=== PATIENT | female | born 1995 | race African-American/Black ===

== ENCOUNTER 2020-06-22 19:50 | Inpatient (IN) | payer OTHER ==
[~2020-06-22 19:50] MED LIST: Iopamidol-370 76% 500 ML 1 ML ONE
[2020-06-22] MEDS ORDERED: Ondansetron PF 4 MG/2 ML Vial ONE ×2 (19:51→20:04)
[2020-06-22 20:07] LABS: Hemoglobin 8.7 g/dL (12.0-16.0); Mean Corpuscular HGB CONC 31.1 g/dL (32.0-36.0); Mean Corpuscular Hemoglobin 24.4 pg (27.0-31.0); Mean Corpuscular Volume 78.5 fL (78.0-98.0); Mean Platelet Volume 10.7 fL (7.4-10.4); Platelet Count 272 thou/uL (130-400); RBC Distribution Width 22.5 % (11.5-14.5); Red Blood Cell (RBC) Count 3.58 mill/uL (4.20-5.40); White Blood Cell (WBC) Count 28.5 thou/uL (4.8-10.8)
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
[2020-06-22] MEDS ORDERED: Fentanyl 100 MCG/2 ML VIAL ONE (20:19)
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
[2020-06-22] MEDS ORDERED: Promethazine HCl 25 MG/ML VIAL ONE ×2 (20:25→20:26)
[2020-06-22 20:30] LABS: MDiff Complete? YES
[2020-06-22 20:31] LABS: Anisocytosis SLIGHT = 6-15 cells (100X) (0-5/hpf); Band 19 % (5-11); Lymphocytes 19 % (21-51); Metamyelocyte 1 % (0-0); Microcytosis SLIGHT = 6-15 cells (100X) (0-5/hpf); Monocytes 1 % (0-10); Neutrophil 60 % (42-75)
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
[2020-06-22 20:37] LABS: INR-International Normal Ratio 1.2; PTT 30.3 sec (22.9-36.1); Prothrombin Time 15.8 sec (12.0-14.7)
[2020-06-22 20:41] LABS: BHCG - Serum Negative (NEGATIVE); Pregs Control Background? CLEAR/WHITE (CLR/WHITE); Pregs Control Bar Appear? YES (CONTROL BAR)
[2020-06-22 20:45] LABS: ALT (SGPT) 427 U/L (8-55); AST (SGOT) 697 U/L (5-34); Alkaline Phosphatase 106 U/L (40-110); Anion Gap 13 mmol/L (10-20); BUN (Urea Nitrogen) 14 mg/dL (7.0-18.7); Bilirubin, Total 0.4 mg/dL (0.2-1.2); Calc. Creatinine Clearance 0 mL/min (70-130); Calcium 7.2 mg/dL (7.8-10.44); Carbon Dioxide 16 mmol/L (22-29); Chloride 112 mmol/L (98-107); Globulin 2.4 g/dL (2.4-3.5); Glucose 178 mg/dL (70-105); Potassium 3.4 mmol/L (3.5-5.1); Protein, Total 5.4 g/dL (6.0-8.3); Sodium 138 mmol/L (136-145)
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
--- NOTE | 2020-06-22 21:05 | RAD ---
EXAM: 3 views of the left ankle HISTORY: Left ankle pain COMPARISON: None FINDINGS: 3 views of the left ankle shows no evidence of acute fracture or dislocation. No soft tissu e swelling is seen. No degenerative changes are present. IMPRESSION: No evidence of acute osseous abnormality.
[2020-06-22] MEDS ORDERED: Dextrose 50% Abboject 50 ML SYRINGE SLOW IVP PRN (21:06)
[2020-06-22] MEDS ORDERED: Morphine 2 MG/ML VIAL SLOW IVP PRN (21:06)
[2020-06-22] MEDS ORDERED: Promethazine HCl 25 MG/ML VIAL IM PRN (21:06)
[2020-06-22] MEDS ORDERED: Dextrose 5% in Water 1,000 ML IV PRN (21:06)
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
[2020-06-22 21:44] LABS: Magnesium 1.8 mg/dL (1.6-2.6); Phosphorus 3.4 mg/dL (2.3-4.7)
[2020-06-22 21:52] LABS: SARS-CoV-2 NAA Rapid Test Not Detected (NotDetected)
[2020-06-22] MEDS ORDERED: Sodium Chloride 0.9% 1,000 ML IV SCH (22:00)
[2020-06-22 22:54] LABS: Hemoglobin 9.8 g/dL (12.0-16.0)
[2020-06-22 23:09] LABS: Lactic Acid 3.3 mmol/L (0.5-2.2)
[2020-06-23] MEDS: Ondansetron PF 4 MG/2 ML Vial IVP PRN (00:14)
[2020-06-23 00:28] VITALS: BMI 26.9
[2020-06-23] MEDS: Lactated Ringer's 1,000 ML IV SCH ×3 (00:59→18:48)
[2020-06-23] MEDS: Morphine 4 MG/ML VIAL SLOW IVP PRN ×3 (02:39→08:45)
[2020-06-23] MEDS ORDERED: Acetaminophen 325 MG Suppository PR PRN (02:43)
[2020-06-23 05:18] LABS: INR-International Normal Ratio 1.1; Prothrombin Time 14.5 sec (12.0-14.7)
[2020-06-23 05:25] LABS: #Lymphocytes 1.1 thou/uL (1.20-3.40); #Monocytes 0.8 thou/uL (0.11-0.59); %Basophils 0.1 % (0.0-1.0); %Eosinophils 0.1 % (0.0-10.0); %Lymphocytes 6.3 % (21.0-51.0); %Monocytes 4.9 % (0.0-10.0); %Neutrophils 88.6 % (42.0-75.0); Hemoglobin 9.1 g/dL (12.0-16.0); Mean Corpuscular HGB CONC 31.4 g/dL (32.0-36.0); Mean Corpuscular Volume 79.3 fL (78.0-98.0); Mean Platelet Volume 11.4 fL (7.4-10.4); Platelet Count 189 thou/uL (130-400); RBC Distribution Width 21.2 % (11.5-14.5); Red Blood Cell (RBC) Count 3.66 mill/uL (4.20-5.40); White Blood Cell (WBC) Count 16.9 thou/uL (4.8-10.8)
[2020-06-23 05:31] LABS: Lactic Acid 2.3 mmol/L (0.5-2.2)
[2020-06-23 05:36] LABS: ALT (SGPT) 476 U/L (8-55); AST (SGOT) 666 U/L (5-34); Albumin 3.3 g/dL (3.5-5.0); Alkaline Phosphatase 102 U/L (40-110); Anion Gap 12 mmol/L (10-20); BUN (Urea Nitrogen) 15 mg/dL (7.0-18.7); Bilirubin, Total 0.7 mg/dL (0.2-1.2); Calc. Creatinine Clearance 141 mL/min (70-130); Calcium 7.5 mg/dL (7.8-10.44); Carbon Dioxide 18 mmol/L (22-29); Chloride 112 mmol/L (98-107); Globulin 2.7 g/dL (2.4-3.5); Glucose 124 mg/dL (70-105); Magnesium 1.8 mg/dL (1.6-2.6); Phosphorus 5.5 mg/dL (2.3-4.7); Potassium 4.6 mmol/L (3.5-5.1); Sodium 137 mmol/L (136-145)
[2020-06-23] MEDS ORDERED: Magnesium 2 GM/50 ML 2 GM in Premix Bag 1 BAG IVPB SCH (07:45)
[2020-06-23] MEDS ORDERED: CEFAZOLIN 2 GM in Premix Bag 1 BAG IVPB SCH (08:45)
[2020-06-23] MEDS: Famotidine/PF 20 mg/2ml Vial SLOW IVP SCH ×2 (08:48→21:19)
[2020-06-23] MEDS ORDERED: TETANUS AND DIPHTHERIA TOX/PF 0.5 ML DISP.SYRIN IM ONE ×2 (09:00→14:30)
[2020-06-23] MEDS ORDERED: FLU VACC QS2020-21(6MOS UP)/PF 60 MCG/0.5 ML SYRINGE IM ONE (09:00)
[2020-06-23] MEDS ORDERED: PROPOFOL 200 MG/20 ML VIAL ONE (09:14)
[2020-06-23] MEDS ORDERED: Dexamethasone 20 MG/5 ML VIAL ONE (09:14)
[2020-06-23] MEDS ORDERED: Rocuronium Bromide 10 MG/ML (10ML VIAL) ONE (09:14)
[2020-06-23] MEDS ORDERED: PHENYLEPHRINE-NS 100 MCG/ML 10 ML SYRINGE ONE (09:14)
[2020-06-23] MEDS ORDERED: Lidocaine 1% PF 5 ML VIAL ONE (09:14)
[2020-06-23] MEDS ORDERED: Glycopyrrolate 0.2 MG/ML 5 ML SYRINGE ONE (09:14)
[2020-06-23] MEDS ORDERED: Ondansetron PF 4 MG/2 ML Vial ONE (09:14)
[2020-06-23] MEDS ORDERED: Sodium Chloride 0.9% 1,000 ML IV SCH (10:00)
--- NOTE | 2020-06-23 11:21 | RAD ---
EXAM: Chest one view: HISTORY: Follow-up tiny right apical pneumothorax. COMPARISON: 06/22/2020 FINDINGS: Very poor inspiratory effort. Heart size: Within normal limits. Lungs: Minimal patchy parenchymal changes primarily in the right midlung zone. No evidence for significant pneumothorax. IMPRESSION: Patchy parenchymal changes right midlung zone probably residual contusion. No evidence for significant pneumothorax. Continued short-term follow-up.
[2020-06-23] MEDS ORDERED: HYDROmorphone 10 mg/100 ml CADD IVPB PRN (11:45)
[2020-06-23 11:46] LABS: Medtox Reader # READER 4; Opiate Screen Detected (NotDetected)
[2020-06-23 11:47] LABS: Amphetamine Not Detected (NotDetected); Barbiturates Screen Not Detected (NotDetected); Benzodiazepine Screen Not Detected (NotDetected); Cocaine Metabolite Screen Not Detected (NotDetected); Medtox Control Line Valid? VALID (VALID); Methadone Not Detected (NotDetected); Methamphetamine Not Detected (NotDetected); Oxycodone Screen Not Detected (NotDetected); Phencyclidine (PCP) Not Detected (NotDetected); THC/Cannabinoid Screen Not Detected (NotDetected); Tricyclic Screen Not Detected (NotDetected)
[2020-06-23 11:54] LABS: Bacteria/HPF None Seen HPF (None Seen); Bilirubin Negative (Negative); Blood, Urine 1+ (Negative); Clarity Clear (Clear); Glucose, Urine (Dipstick) Normal (Negative); Ketone, Urine Negative (Negative); Leukocyte Negative Leu/uL (Negative); Nitrite Negative (Negative); Protein, Urine (Dipstick) 20 mg/dL (Neg-Trace); Squamous Epithelial 0-3 HPF (0-3); Urobilinogen Normal mg/dL (Less than 2)
[2020-06-23 11:56] LABS: Urine Culture Reflex Yes Yes
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
[2020-06-23] MEDS ORDERED: Fentanyl 100 MCG/2 ML VIAL ONE (14:31)
[2020-06-23] MEDS ORDERED: SUGAMMADEX SODIUM 200 MG/2 ML VIAL ONE (16:31)
[2020-06-23] MEDS: CEFAZOLIN 2 GM in Premix Bag 1 BAG IVPB SCH (18:31)
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
[2020-06-23 19:29] LABS: Hemoglobin 8.4 g/dL (12.0-16.0); Mean Corpuscular HGB CONC 31.7 g/dL (32.0-36.0); Mean Corpuscular Hemoglobin 25.6 pg (27.0-31.0); Mean Corpuscular Volume 80.8 fL (78.0-98.0); Mean Platelet Volume 11.7 fL (7.4-10.4); Platelet Count 148 thou/uL (130-400); RBC Distribution Width 21.1 % (11.5-14.5); Red Blood Cell (RBC) Count 3.27 mill/uL (4.20-5.40); White Blood Cell (WBC) Count 15.7 thou/uL (4.8-10.8)
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
[2020-06-23] MEDS ORDERED: Boostrix 0.5 ML (Tdap) VIAL IM ONE (20:00)
--- NOTE | 2020-06-23 23:20 | PDOC.BPN ---
- Brief Progress Note Encounter Date: 06/23/20 Encounter Time: 21:00 Patient was seen during evening rounds in the critical care unit resting comfortably in no distress. No issues reported by the patients nurse. Apsen collar remains in place due to posterior neck pain. She continues be be confused off and on. Abdomen is soft, with diffuse tenderness. Vital signs are stable, mildly tachycardiac, highest temp 100.2. She is tolerating clear liquids with minimal appetite. Plan of care is unchanged
[2020-06-24 01:04] LABS: Hemoglobin 7.3 g/dL (12.0-16.0); Mean Corpuscular HGB CONC 32.5 g/dL (32.0-36.0); Mean Corpuscular Hemoglobin 25.9 pg (27.0-31.0); Mean Corpuscular Volume 79.7 fL (78.0-98.0); Mean Platelet Volume 11.4 fL (7.4-10.4); Platelet Count 134 thou/uL (130-400); RBC Distribution Width 20.9 % (11.5-14.5); Red Blood Cell (RBC) Count 2.82 mill/uL (4.20-5.40); White Blood Cell (WBC) Count 10.9 thou/uL (4.8-10.8)
[2020-06-24] MEDS: CEFAZOLIN 2 GM in Premix Bag 1 BAG IVPB SCH (02:52)
[2020-06-24] MEDS: Lactated Ringer's 1,000 ML IV SCH ×3 (02:53→21:11)
[2020-06-24 04:54] LABS: #Lymphocytes 0.9 thou/uL (1.20-3.40); #Monocytes 0.6 thou/uL (0.11-0.59); #Neutrophils 10.8 thou/uL (1.40-6.50); %Basophils 0.2 % (0.0-1.0); %Lymphocytes 7.4 % (21.0-51.0); %Monocytes 4.5 % (0.0-10.0); %Neutrophils 87.9 % (42.0-75.0); Hemoglobin 7.4 g/dL (12.0-16.0); Mean Corpuscular HGB CONC 32.7 g/dL (32.0-36.0); Mean Corpuscular Hemoglobin 26.3 pg (27.0-31.0); Mean Corpuscular Volume 80.5 fL (78.0-98.0); Mean Platelet Volume 10.9 fL (7.4-10.4); Platelet Count 131 thou/uL (130-400); RBC Distribution Width 21.1 % (11.5-14.5); Red Blood Cell (RBC) Count 2.83 mill/uL (4.20-5.40); White Blood Cell (WBC) Count 12.3 thou/uL (4.8-10.8)
[2020-06-24 05:08] LABS: Lactic Acid 1.6 mmol/L (0.5-2.2)
[2020-06-24 05:12] LABS: ALT (SGPT) 322 U/L (8-55); AST (SGOT) 247 U/L (5-34); Albumin 3.3 g/dL (3.5-5.0); Alkaline Phosphatase 84 U/L (40-110); Anion Gap 12 mmol/L (10-20); BUN (Urea Nitrogen) 10 mg/dL (7.0-18.7); Bilirubin, Total 0.5 mg/dL (0.2-1.2); Calc. Creatinine Clearance 145 mL/min (70-130); Calcium 7.9 mg/dL (7.8-10.44); Carbon Dioxide 21 mmol/L (22-29); Chloride 108 mmol/L (98-107); Globulin 2.7 g/dL (2.4-3.5); Glucose 134 mg/dL (70-105); Magnesium 2.1 mg/dL (1.6-2.6); Phosphorus 2.8 mg/dL (2.3-4.7); Potassium 4.5 mmol/L (3.5-5.1); Sodium 136 mmol/L (136-145)
[2020-06-24] MEDS ORDERED: Sodium Phosphate 15 MMOL in Sodium Chloride 0.9% 250 ML 250 ML IVPB SCH (07:30)
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
[2020-06-24] MEDS: Famotidine/PF 20 mg/2ml Vial SLOW IVP SCH ×2 (08:20→21:09)
--- NOTE | 2020-06-24 09:16 | RAD ---
CHEST 1 VIEW: INDICATION: History of right-sided pneumonia. FINDINGS: Right-sided airspace disease persists. Cardiomegaly is stable. No pleural effusion or pneumothorax is evident. Osseous structures are similar. The patient has a tracheostomy tube in place. IMPRESSION: Right lower lobe pneumonia. POS: [facility]
[2020-06-24 10:28] LABS: Mean Corpuscular HGB CONC 32.7 g/dL (32.0-36.0); Mean Corpuscular Hemoglobin 26.6 pg (27.0-31.0); Mean Corpuscular Volume 81.4 fL (78.0-98.0); Mean Platelet Volume 11.3 fL (7.4-10.4); Platelet Count 123 thou/uL (130-400); RBC Distribution Width 19.7 % (11.5-14.5); White Blood Cell (WBC) Count 14.1 thou/uL (4.8-10.8)
[2020-06-24] MEDS ORDERED: HYDROmorphone 10 mg/100 ml CADD IVPB PRN (11:18)
[2020-06-24] MEDS ORDERED: traMADol HCl 50 MG TAB PO SCH (12:00)
[2020-06-24] MEDS: Ondansetron PF 4 MG/2 ML Vial IVP PRN ×2 (12:40→21:09)
[2020-06-24] MEDS: Gabapentin 300 MG CAP PO SCH ×2 (15:00→21:10)
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
[2020-06-24 16:51] LABS: Lactic Acid 1.9 mmol/L (0.5-2.2)
[2020-06-24] MEDS ORDERED: traMADol HCl 50 MG TAB PO PRN (17:11)
[2020-06-24 17:43] LABS: Hemoglobin 7.4 g/dL (12.0-16.0); Mean Corpuscular HGB CONC 31.9 g/dL (32.0-36.0); Mean Corpuscular Hemoglobin 25.6 pg (27.0-31.0); Mean Corpuscular Volume 80.1 fL (78.0-98.0); Mean Platelet Volume 11.7 fL (7.4-10.4); Platelet Count 131 thou/uL (130-400); White Blood Cell (WBC) Count 15.4 thou/uL (4.8-10.8)
--- NOTE | 2020-06-24 23:53 | PDOC.BPN ---
- Brief Progress Note Encounter Date: 06/24/20 Encounter Time: 21:30 Patient was seen during evening rounds in the critical care unit resting comfortably in no distress. Arouses easily. Continues to be confused off and on. She thinks she is in a mental hospital. Abdomen is soft and less tender. Vital signs are stable and patient is afebrile. Mildly tachycardiac. Plan of care is unchanged
[2020-06-25 00:11] LABS: Hemoglobin 7.4 g/dL (12.0-16.0); Mean Corpuscular HGB CONC 32.5 g/dL (32.0-36.0); Mean Corpuscular Hemoglobin 26.1 pg (27.0-31.0); Mean Corpuscular Volume 80.2 fL (78.0-98.0); Platelet Count 120 thou/uL (130-400); RBC Distribution Width 19.8 % (11.5-14.5); Red Blood Cell (RBC) Count 2.83 mill/uL (4.20-5.40)
[2020-06-25] MEDS: Lactated Ringer's 1,000 ML IV SCH ×3 (05:18→19:15)
[2020-06-25 05:43] LABS: #Eosinphils 0.2 thou/uL (0.0-0.7); #Lymphocytes 2.3 thou/uL (1.20-3.40); #Monocytes 0.9 thou/uL (0.11-0.59); #Neutrophils 9.9 thou/uL (1.40-6.50); %Basophils 0.4 % (0.0-1.0); %Eosinophils 1.7 % (0.0-10.0); %Lymphocytes 17.3 % (21.0-51.0); %Monocytes 6.8 % (0.0-10.0); %Neutrophils 73.8 % (42.0-75.0); Hemoglobin 7.1 g/dL (12.0-16.0); Mean Corpuscular HGB CONC 31.4 g/dL (32.0-36.0); Mean Corpuscular Hemoglobin 25.3 pg (27.0-31.0); Mean Corpuscular Volume 80.5 fL (78.0-98.0); Mean Platelet Volume 11.7 fL (7.4-10.4); Platelet Count 109 thou/uL (130-400); RBC Distribution Width 20.1 % (11.5-14.5); Red Blood Cell (RBC) Count 2.82 mill/uL (4.20-5.40); White Blood Cell (WBC) Count 13.3 thou/uL (4.8-10.8)
[2020-06-25 05:52] LABS: Phosphorus 2.7 mg/dL (2.3-4.7)
[2020-06-25 05:55] LABS: ALT (SGPT) 184 U/L (8-55); AST (SGOT) 120 U/L (5-34); Alkaline Phosphatase 75 U/L (40-110); Anion Gap 10 mmol/L (10-20); BUN (Urea Nitrogen) 10 mg/dL (7.0-18.7); Bilirubin, Total 0.6 mg/dL (0.2-1.2); Calc. Creatinine Clearance 155 mL/min (70-130); Calcium 7.4 mg/dL (7.8-10.44); Carbon Dioxide 23 mmol/L (22-29); Chloride 107 mmol/L (98-107); Globulin 2.4 g/dL (2.4-3.5); Glucose 89 mg/dL (70-105); Magnesium 1.9 mg/dL (1.6-2.6); Potassium 3.9 mmol/L (3.5-5.1); Protein, Total 5.4 g/dL (6.0-8.3); Sodium 136 mmol/L (136-145)
[2020-06-25] MEDS ORDERED: Magnesium Sulfate 3 GM, Potassium Phosphate 30 MMOL in Sodium Chloride 0.9% 250 ML 250 ML IVPB SCH (08:30)
[2020-06-25] MEDS: Famotidine/PF 20 mg/2ml Vial SLOW IVP SCH ×2 (09:27→21:26)
[2020-06-25] MEDS: Ascorbic Acid 500 mg Chewable Tablet PO SCH ×2 (09:27→21:22)
[2020-06-25] MEDS: Gabapentin 300 MG CAP PO SCH ×3 (09:28→21:19)
[2020-06-25] MEDS: Ferrous Sulfate 325 MG TAB PO SCH ×2 (09:30→21:22)
[2020-06-25] MEDS ORDERED: Gabapentin 300 MG CAP ONE (17:00)
[2020-06-25] MEDS ORDERED: Famotidine/PF 20 mg/2ml Vial ONE (21:25)
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
[2020-06-26 07:21] LABS: Anion Gap 13 mmol/L (10-20); BUN (Urea Nitrogen) 7 mg/dL (7.0-18.7); Calc. Creatinine Clearance 187 mL/min (70-130); Calcium 7.3 mg/dL (7.8-10.44); Carbon Dioxide 21 mmol/L (22-29); Chloride 106 mmol/L (98-107); Glucose 74 mg/dL (70-105); Magnesium 1.8 mg/dL (1.6-2.6); Potassium 4.2 mmol/L (3.5-5.1); Sodium 136 mmol/L (136-145)
[2020-06-26 07:56] LABS: #Eosinphils 0.3 thou/uL (0.0-0.7); #Lymphocytes 1.8 thou/uL (1.20-3.40); #Monocytes 0.9 thou/uL (0.11-0.59); #Neutrophils 10.2 thou/uL (1.40-6.50); %Basophils 0.3 % (0.0-1.0); %Lymphocytes 13.9 % (21.0-51.0); %Monocytes 6.9 % (0.0-10.0); Hemoglobin 8.5 g/dL (12.0-16.0); Mean Corpuscular HGB CONC 32.7 g/dL (32.0-36.0); Mean Corpuscular Hemoglobin 26.7 pg (27.0-31.0); Mean Corpuscular Volume 81.8 fL (78.0-98.0); Mean Platelet Volume 6.7 fL (7.4-10.4); Platelet Count 113 thou/uL (130-400); RBC Distribution Width 19.7 % (11.5-14.5); White Blood Cell (WBC) Count 13.3 thou/uL (4.8-10.8)
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
[2020-06-26] MEDS: Famotidine 20 MG TAB PO SCH ×2 (09:00→20:33)
[2020-06-26] MEDS: Ferrous Sulfate 325 MG TAB PO SCH ×2 (09:00→20:33)
[2020-06-26] MEDS: Gabapentin 100 MG CAP PO SCH ×3 (09:00→20:33)
[2020-06-26] MEDS: Ascorbic Acid 500 mg Chewable Tablet PO SCH ×2 (09:00→20:33)
[2020-06-26] MEDS: cloNIDine 0.1 MG TAB PO SCH ×3 (09:28→20:33)
[2020-06-26] MEDS: Docusate 100 MG CAP PO SCH ×2 (09:29→20:33)
[2020-06-26] MEDS ORDERED: Iopamidol 370 76% 50 ML VIAL FS ONE (10:03)
[2020-06-26] MEDS: Lactated Ringer's 1,000 ML IV SCH ×3 (11:26→18:52)
[2020-06-26] MEDS: Polyethylene Glycol 3350 17 GM Packet PO SCH (11:27)
--- NOTE | 2020-06-26 11:29 | PRG ---
DATE OF SERVICE: 06/26/2020 SUBJECTIVE: Delfina is now postop day 3 from a left femoral shaft intramedullary nail fixation. She is doing relatively well. She still is in temporizing PACU currently. OBJECTIVE: Temperature 98.1, pulse 126, respiratory rate 28, blood pressure is 130/84. She arouses, but still somnolent as she was yesterday. She does not speak much and she is very somnolent. Splints intact over the left distal radius for closed treatment for minimally displaced fracture. [place] are intact in the left femur. Neurovascularly intact. No shortening or malrotation. LABORATORY DATA: Hemoglobin and hematocrit 8.5 and 26.1. IMPRESSION: 1. A 24-year-old female, postop day 3, left femoral shaft nailing and closed treatment of left distal radius. 2. Anemia. PLAN: We will continue to follow for blood loss, pain control. Disposition per Trauma Team. Job ID: [id number]
[2020-06-26] MEDS: traMADol HCl 50 MG TAB PO SCH ×3 (12:00→22:05)
[2020-06-26] MEDS: Acetaminophen 325 MG TAB PO SCH ×3 (12:30→22:05)
[2020-06-26] MEDS ORDERED: Morphine 2 MG/ML VIAL SLOW IVP PRN (14:27)
[2020-06-26] MEDS ORDERED: Magnesium Sulfate 3 GM in Sodium Chloride 0.9% 100 ML IVPB SCH (14:30)
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
[2020-06-26] MEDS: Cyclobenzaprine 10 MG TAB PO PRN (20:33)
[2020-06-26] MEDS: traMADol HCl 50 MG TAB PO PRN (20:33)
--- NOTE | 2020-06-26 23:13 | RAD ---
EXAM: CHEST ONE VIEW HISTORY: Hypoxia COMPARISON: 06/24/2020 FINDINGS: Cardiac silhouette is magnified by projection. There has been interval increase in bilateral perihila r parenchymal airspace opacities with greater parenchymal opacity present at each lung base as well. IVC filter is partially imaged overlying the right mid abdomen. No other interval change. IMPRESSION: Interval increase in bilateral perihilar parenchymal airspace opacities as well as increase in parenc hymal airspace opacities at each lung base. Findings may be related to bilateral infectious process/pneumonia. Atypical pneumonia is a possibility. Follow-up to resolution is recommended.
[2020-06-26] MEDS ORDERED: Chloraseptic Spray 180 ml Bottle PO PRN (23:20)
[2020-06-27] MEDS: cloNIDine 0.1 MG TAB PO SCH ×4 (02:56→20:30)
[2020-06-27] MEDS: Lactated Ringer's 1,000 ML IV SCH ×2 (03:30→18:05)
[2020-06-27] MEDS: traMADol HCl 50 MG TAB PO SCH (05:50)
[2020-06-27] MEDS: Acetaminophen 325 MG TAB PO SCH ×4 (05:50→23:57)
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
[2020-06-27 08:08] LABS: #Eosinphils 0.3 thou/uL (0.0-0.7); #Lymphocytes 2.1 thou/uL (1.20-3.40); #Monocytes 1.1 thou/uL (0.11-0.59); #Neutrophils 7.7 thou/uL (1.40-6.50); %Basophils 0.4 % (0.0-1.0); %Eosinophils 2.5 % (0.0-10.0); %Lymphocytes 18.6 % (21.0-51.0); %Monocytes 9.7 % (0.0-10.0); %Neutrophils 68.8 % (42.0-75.0); Hemoglobin 9.9 g/dL (12.0-16.0); Mean Corpuscular HGB CONC 32.5 g/dL (32.0-36.0); Mean Corpuscular Hemoglobin 26.9 pg (27.0-31.0); Mean Corpuscular Volume 82.9 fL (78.0-98.0); Mean Platelet Volume 11.6 fL (7.4-10.4); Platelet Count 132 thou/uL (130-400); RBC Distribution Width 21.4 % (11.5-14.5); Red Blood Cell (RBC) Count 3.69 mill/uL (4.20-5.40); White Blood Cell (WBC) Count 11.2 thou/uL (4.8-10.8)
--- NOTE | 2020-06-27 08:23 | RAD ---
PORTABLE CHEST: Date: 06/27/2020 HISTORY: Pneumonia follow-up. COMPARISON: 06/26/2020. FINDINGS: Bilateral lung infiltrates are again seen, more pronounced in the perihilar regions. The infiltrates appear improved when compared to yesterday. IMPRESSION: Improvement in the bilateral perihilar infiltrates. POS: AGW
[2020-06-27 08:40] LABS: Anion Gap 11 mmol/L (10-20); BUN (Urea Nitrogen) 10 mg/dL (7.0-18.7); Calc. Creatinine Clearance 178 mL/min (70-130); Carbon Dioxide 24 mmol/L (22-29); Chloride 108 mmol/L (98-107); Glucose 98 mg/dL (70-105); Magnesium 2.1 mg/dL (1.6-2.6); Phosphorus 3.7 mg/dL (2.3-4.7); Sodium 139 mmol/L (136-145)
[2020-06-27] MEDS: Famotidine 20 MG TAB PO SCH ×2 (08:54→20:30)
[2020-06-27] MEDS: Azithromycin 250 MG TAB PO SCH (08:54)
[2020-06-27] MEDS: Ascorbic Acid 500 mg Chewable Tablet PO SCH ×2 (08:54→20:32)
[2020-06-27] MEDS: Gabapentin 100 MG CAP PO SCH ×3 (08:54→20:32)
[2020-06-27] MEDS: Polyethylene Glycol 3350 17 GM Packet PO SCH (08:55)
[2020-06-27] MEDS: Ferrous Sulfate 325 MG TAB PO SCH ×2 (08:55→20:32)
[2020-06-27] MEDS: Docusate 100 MG CAP PO SCH ×2 (08:55→20:32)
--- NOTE | 2020-06-27 09:46 | ULT ---
EXAM: Bilateral lower extremity venous Doppler US HISTORY: bilateral lower extremity pain FINDINGS: Grayscale, color-flow, Doppler evaluation, spectral analysis of the bilateral lower extremities venou s structures is performed with 2-D imaging. The bilateral common femoral, superficial femoral, popliteal, posterior tibial, proximal greater saphenous and profunda femoral veins are imaged. There is normal luminal compressibility, flow, and augmentation in the visualized deep venous structu res of the bilateral lower extremities. IMPRESSION: No evidence of a deep vein thrombosis in either lower extremity.
--- NOTE | 2020-06-27 15:19 | PRG ---
DATE OF SERVICE: 06/27/2020 SUBJECTIVE: Delfina is a 24-year-old female, postoperative day 4 for left femur intramedullary nail fixation. She is doing relatively well, but she still is sluggish and very sleepy. OBJECTIVE: GENERAL: She wakens and arouses. VITAL SIGNS: Stable. Temperature 97.9, pulse 96, respiratory rate 16, and blood pressure 135/82. NEUROLOGIC: She is alert and responsive, but very somnolent. IMPRESSION: 1. A 24-year-old female postoperative day 4 for left femoral nail fixation. 2. Closed treatment of left distal radius fracture. PLAN: Continue current care. Disposition per Trauma Team. Job ID: [id number]
[2020-06-28] MEDS: traMADol HCl 50 MG TAB PO PRN ×2 (00:07→18:39)
[2020-06-28] MEDS: Cyclobenzaprine 10 MG TAB PO PRN (00:07)
[2020-06-28] MEDS: cloNIDine 0.1 MG TAB PO SCH ×4 (02:29→20:25)
[2020-06-28] MEDS: Lactated Ringer's 1,000 ML IV SCH ×2 (04:56→16:12)
[2020-06-28] MEDS: Acetaminophen 325 MG TAB PO SCH ×4 (05:00→23:29)
[2020-06-28] MEDS: Gabapentin 100 MG CAP PO SCH ×3 (09:43→20:25)
[2020-06-28] MEDS: Famotidine 20 MG TAB PO SCH ×2 (09:43→20:25)
[2020-06-28] MEDS: Ascorbic Acid 500 mg Chewable Tablet PO SCH ×2 (09:43→20:25)
[2020-06-28] MEDS: Docusate 100 MG CAP PO SCH ×2 (09:43→20:25)
[2020-06-28] MEDS: Azithromycin 250 MG TAB PO SCH (09:43)
[2020-06-28] MEDS: Ferrous Sulfate 325 MG TAB PO SCH ×2 (09:43→20:26)
[2020-06-28] MEDS: Polyethylene Glycol 3350 17 GM Packet PO SCH (09:44)
[2020-06-28] MEDS: Bisacodyl 10 MG SUPP PR SCH (16:13)
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
[2020-06-29] MEDS: cloNIDine 0.1 MG TAB PO SCH ×4 (02:30→20:46)
[2020-06-29] MEDS: traMADol HCl 50 MG TAB PO PRN ×2 (04:05→10:16)
[2020-06-29] MEDS: Acetaminophen 325 MG TAB PO SCH ×3 (05:32→18:22)
[2020-06-29 05:43] LABS: #Eosinphils 0.3 thou/uL (0.0-0.7); #Monocytes 0.8 thou/uL (0.11-0.59); #Neutrophils 7.8 thou/uL (1.40-6.50); %Basophils 0.1 % (0.0-1.0); %Eosinophils 2.5 % (0.0-10.0); %Lymphocytes 18.6 % (21.0-51.0); %Monocytes 7.1 % (0.0-10.0); %Neutrophils 71.8 % (42.0-75.0); Hemoglobin 9.9 g/dL (12.0-16.0); Mean Corpuscular HGB CONC 30.9 g/dL (32.0-36.0); Mean Corpuscular Hemoglobin 25.6 pg (27.0-31.0); Mean Corpuscular Volume 82.6 fL (78.0-98.0); Mean Platelet Volume 11.1 fL (7.4-10.4); Platelet Count 191 thou/uL (130-400); RBC Distribution Width 22.2 % (11.5-14.5); Red Blood Cell (RBC) Count 3.89 mill/uL (4.20-5.40); White Blood Cell (WBC) Count 10.8 thou/uL (4.8-10.8)
--- NOTE | 2020-06-29 08:10 | RAD ---
Chest AP view INDICATION: Follow-up evaluation COMPARISON: June 27, 2020 FINDINGS: Lungs: There is worsening airspace disease of the left lower lobe. Patchy airspace opacity at the ri ght lung base is stable Cardiac silhouette: Mild cardiomegaly persists Pulmonary vasculature: There is worsening pulmonary vascular congestion Pleural spaces: There are tiny bilateral pleural effusions, left greater than right Upper abdomen: No abnormality seen. Osseous structures: No acute osseous abnormality. Additional findings: None. IMPRESSION: Persistent mild cardiomegaly worsening pulmonary vascular congestion and tiny bilateral pleural effus ions . Recommend correlation for volume overload. There is worsening airspace disease of the left lower lobe which may reflect worsening subsegmental volume loss, edema or pneumonia. Continued follow -up is recommended
[2020-06-29] MEDS: Ferrous Sulfate 325 MG TAB PO SCH ×2 (08:26→20:45)
[2020-06-29] MEDS: Azithromycin 250 MG TAB PO SCH (08:26)
[2020-06-29] MEDS: Docusate 100 MG CAP PO SCH ×2 (08:26→20:45)
[2020-06-29] MEDS: Ascorbic Acid 500 mg Chewable Tablet PO SCH ×2 (08:26→20:45)
[2020-06-29] MEDS: Famotidine 20 MG TAB PO SCH ×2 (08:26→20:45)
[2020-06-29] MEDS: Gabapentin 100 MG CAP PO SCH ×3 (08:27→20:45)
[2020-06-29] MEDS: Polyethylene Glycol 3350 17 GM Packet PO SCH (08:29)
[2020-06-29] MEDS: Lactated Ringer's 1,000 ML IV SCH (11:38)
[2020-06-29] MEDS ORDERED: Furosemide 20 MG TAB PO SCH (12:45)
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
[2020-06-29] MEDS: Bisacodyl 10 MG SUPP PR SCH (17:41)
[2020-06-29] MEDS: Senokot S 8.6-50 MG TAB PO SCH (20:45)
[2020-06-29] MEDS: Enoxaparin Sodium 40 MG/0.4 ML SYRINGE SC SCH (20:46)
[2020-06-30] MEDS: Acetaminophen 325 MG TAB PO SCH ×4 (01:14→17:57)
[2020-06-30] MEDS: cloNIDine 0.1 MG TAB PO SCH ×4 (03:18→20:44)
[2020-06-30] MEDS: traMADol HCl 50 MG TAB PO PRN ×2 (07:21→19:52)
[2020-06-30] MEDS: Cyclobenzaprine 10 MG TAB PO PRN (07:21)
[2020-06-30] MEDS: Ferrous Sulfate 325 MG TAB PO SCH ×2 (08:35→20:45)
[2020-06-30] MEDS: Famotidine 20 MG TAB PO SCH ×2 (08:35→20:44)
[2020-06-30] MEDS: Docusate 100 MG CAP PO SCH ×2 (08:35→20:45)
[2020-06-30] MEDS: Senokot S 8.6-50 MG TAB PO SCH ×2 (08:35→20:45)
[2020-06-30] MEDS: Polyethylene Glycol 3350 17 GM Packet PO SCH (08:36)
[2020-06-30] MEDS: Gabapentin 100 MG CAP PO SCH ×3 (08:36→20:44)
[2020-06-30] MEDS: Azithromycin 250 MG TAB PO SCH (08:36)
[2020-06-30] MEDS: Ascorbic Acid 500 mg Chewable Tablet PO SCH ×2 (08:36→20:45)
[2020-06-30] MEDS: Bisacodyl 10 MG SUPP PR SCH (08:37)
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
[2020-06-30] MEDS: Enoxaparin Sodium 40 MG/0.4 ML SYRINGE SC SCH (20:45)
[2020-07-01] MEDS: Acetaminophen 325 MG TAB PO SCH ×5 (01:34→23:10)
[2020-07-01] MEDS: cloNIDine 0.1 MG TAB PO SCH ×4 (01:35→20:52)
[2020-07-01] MEDS: Docusate 100 MG CAP PO SCH ×2 (08:40→20:52)
[2020-07-01] MEDS: Ferrous Sulfate 325 MG TAB PO SCH ×2 (08:40→20:52)
[2020-07-01] MEDS: Ascorbic Acid 500 mg Chewable Tablet PO SCH ×2 (08:40→20:52)
[2020-07-01] MEDS: Senokot S 8.6-50 MG TAB PO SCH ×2 (08:40→20:52)
[2020-07-01] MEDS: Gabapentin 100 MG CAP PO SCH ×3 (08:41→20:54)
[2020-07-01] MEDS: Polyethylene Glycol 3350 17 GM Packet PO SCH (08:42)
[2020-07-01] MEDS: traMADol HCl 50 MG TAB PO PRN (09:11)
[2020-07-01] MEDS: Bisacodyl 10 MG SUPP PR SCH (12:11)
[2020-07-01] MEDS: Cyclobenzaprine 10 MG TAB PO PRN (12:16)
[2020-07-01] MEDS: traMADol HCl 50 MG TAB PO SCH ×4 (12:16→23:11)
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
[2020-07-01] MEDS ORDERED: Sodium Chloride 0.9% 1,000 ML IV SCH (16:00)
[2020-07-01] MEDS: Enoxaparin Sodium 40 MG/0.4 ML SYRINGE SC SCH (20:52)
[2020-07-02] MEDS: cloNIDine 0.1 MG TAB PO SCH ×4 (01:52→20:37)
[2020-07-02 02:36] LABS: Bacteria/HPF 4+ HPF (None Seen); Bilirubin Negative (Negative); Blood, Urine Negative (Negative); Clarity Turbid (Clear); Glucose, Urine (Dipstick) Normal (Negative); Ketone, Urine 40 mg/dL (Negative); Leukocyte 500 Leu/uL (Negative); Nitrite Negative (Negative); Protein, Urine (Dipstick) 10 mg/dL (Neg-Trace); RBC/HPF 0-3 HPF (0-3); Specific Gravity, Urine 1.028 (1.002-1.036); WBC/HPF 21-50 HPF (0-3)
[2020-07-02 02:38] LABS: Urine Culture Reflex No No
[2020-07-02] MEDS ORDERED: Magnesium Citrate 300 ML BOT PO SCH (04:30)
[2020-07-02] MEDS: traMADol HCl 50 MG TAB PO SCH ×6 (05:00→23:40)
[2020-07-02] MEDS: Acetaminophen 325 MG TAB PO SCH ×4 (05:00→23:40)
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
--- NOTE | 2020-07-02 08:00 | ULT ---
EXAM: Bilateral lower extremity venous ultrasound HISTORY: Bilateral lower extremity pain and edema COMPARISON: 06/27/2020 TECHNIQUE: Multiplanar grayscale and color Doppler images were obtained in a bilateral lower extremit y venous ultrasound. Spectral analysis of the Doppler waveforms were performed. FINDINGS: The bilateral common femoral vein, profunda femoral veins, superficial femoral veins, and p opliteal veins are normal in appearance without visible thrombus. These vessels demonstrate normal compression, flow, and augmentation. The bilateral posterior tibial veins and greater saphenous veins are patent without evidence of throm bus. IMPRESSION: No evidence of DVT.
[2020-07-02] MEDS: Senokot S 8.6-50 MG TAB PO SCH ×2 (08:12→20:38)
[2020-07-02] MEDS: Ascorbic Acid 500 mg Chewable Tablet PO SCH ×2 (08:13→20:38)
[2020-07-02] MEDS: Ferrous Sulfate 325 MG TAB PO SCH ×2 (08:13→20:39)
[2020-07-02] MEDS: Gabapentin 100 MG CAP PO SCH ×3 (08:13→20:39)
[2020-07-02] MEDS: Docusate 100 MG CAP PO SCH ×2 (08:13→20:38)
[2020-07-02] MEDS: Polyethylene Glycol 3350 17 GM Packet PO SCH (08:14)
--- NOTE | 2020-07-02 08:48 | RAD ---
EXAM: Supine abdomen INDICATIONS: Ileus COMPARISON: None. FINDINGS: Mild gaseous distention of the colon with scattered stool throughout colon. Mild gaseous di stention of small bowel loops. No mass affect. Vena caval filter. IMPRESSION: Mild distention of small and large bowel would be consistent with ileus.
[2020-07-02] MEDS: Cyclobenzaprine 10 MG TAB PO PRN (09:47)
[2020-07-02] MEDS: Bisacodyl 10 MG SUPP PR SCH (10:42)
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
[2020-07-02] MEDS: Ondansetron PF 4 MG/2 ML Vial IVP PRN (20:39)
[2020-07-02] MEDS: Ciprofloxacin 500 MG TAB PO SCH (20:41)
[2020-07-02] MEDS: Enoxaparin Sodium 40 MG/0.4 ML SYRINGE SC SCH (20:41)
[2020-07-03] MEDS: traMADol HCl 50 MG TAB PO PRN (00:20)
[2020-07-03] MEDS: Cyclobenzaprine 10 MG TAB PO PRN (00:20)
--- NOTE | 2020-07-03 00:51 | PDOC.BPN ---
- Brief Progress Note Encounter Date: 07/02/20 Encounter Time: 23:30 Patient was seen during evening rounds on the surgical floor awake, alert, playing on her phone . No issues reported by the patients nurse. SHe is passing gas but no BM/. Vital signs are stable and patient is afebrile. Plan of care is unchanged.
[2020-07-03] MEDS: cloNIDine 0.1 MG TAB PO SCH ×4 (03:39→20:47)
[2020-07-03] MEDS: traMADol HCl 50 MG TAB PO SCH ×5 (05:17→20:48)
[2020-07-03] MEDS: Acetaminophen 325 MG TAB PO SCH ×3 (05:17→17:00)
[2020-07-03] MEDS: Ciprofloxacin 500 MG TAB PO SCH ×2 (05:18→20:47)
[2020-07-03 05:49] LABS: Anion Gap 14 mmol/L (10-20); BUN (Urea Nitrogen) 13 mg/dL (7.0-18.7); Calc. Creatinine Clearance 155 mL/min (70-130); Calcium 9.1 mg/dL (7.8-10.44); Carbon Dioxide 24 mmol/L (22-29); Chloride 105 mmol/L (98-107); Glucose 99 mg/dL (70-105); Magnesium 2.1 mg/dL (1.6-2.6); Phosphorus 4.9 mg/dL (2.3-4.7); Potassium 4.4 mmol/L (3.5-5.1); Sodium 139 mmol/L (136-145)
[2020-07-03 05:51] LABS: #Basophils 0.1 thou/uL (0.0-0.2); #Eosinphils 0.3 thou/uL (0.0-0.7); #Lymphocytes 2.2 thou/uL (1.20-3.40); #Monocytes 0.7 thou/uL (0.11-0.59); #Neutrophils 4.7 thou/uL (1.40-6.50); %Basophils 0.7 % (0.0-1.0); %Eosinophils 3.7 % (0.0-10.0); %Lymphocytes 27.3 % (21.0-51.0); %Monocytes 9.1 % (0.0-10.0); %Neutrophils 59.2 % (42.0-75.0); Hemoglobin 10.6 g/dL (12.0-16.0); Mean Corpuscular HGB CONC 29.2 g/dL (32.0-36.0); Mean Corpuscular Hemoglobin 24.6 pg (27.0-31.0); Mean Corpuscular Volume 84.4 fL (78.0-98.0); Mean Platelet Volume 9.4 fL (7.4-10.4); Platelet Count 341 thou/uL (130-400); RBC Distribution Width 22.3 % (11.5-14.5); Red Blood Cell (RBC) Count 4.32 mill/uL (4.20-5.40)
[2020-07-03] MEDS: Polyethylene Glycol 3350 17 GM Packet PO SCH (08:57)
[2020-07-03] MEDS: Ascorbic Acid 500 mg Chewable Tablet PO SCH ×2 (09:01→20:47)
[2020-07-03] MEDS: Gabapentin 100 MG CAP PO SCH ×3 (09:03→20:47)
[2020-07-03] MEDS: Docusate 100 MG CAP PO SCH ×2 (09:03→20:49)
[2020-07-03] MEDS: Senokot S 8.6-50 MG TAB PO SCH ×2 (09:03→20:49)
[2020-07-03] MEDS: Ferrous Sulfate 325 MG TAB PO SCH ×2 (09:03→20:47)
[2020-07-03 10:13] LABS: SARS-CoV-2 PCR by NAA Not Detected (NotDetected)
[2020-07-03] MEDS: Bisacodyl 10 MG SUPP PR SCH (11:12)
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
--- NOTE | 2020-07-03 12:55 | EKG ---
Test Reason : Blood Pressure : / mmHG Vent. Rate : 135 BPM Atrial Rate : 135 BPM P-R Int : 130 ms QRS Dur : 080 ms QT Int : 298 ms P-R-T Axes : 039 068 013 degrees QTc Int : 447 ms Sinus tachycardia Otherwise normal ECG Confirmed by MARITZA MOORE M.D. ([id number]), international editorial producer VALE GONZALEZ ([id number]) on 07/03/2020 12:55:43 PM Referred By: Confirmed By:MARITZA MOORE M.D.
[2020-07-03] MEDS: Enoxaparin Sodium 40 MG/0.4 ML SYRINGE SC SCH (20:46)
--- NOTE | 2020-07-03 22:29 | PDOC.BPN ---
- Brief Progress Note Encounter Date: 07/03/20 Encounter Time: 21:45 Patient was seen during evening rounds on the surgical floor resting comfortably in no distress. She arouses easily. No issues reported by the patients nurse. Vital signs are stable and patient is afebrile. She reports having 2 bowel move ments today. Pain is controlled at this time. Plan of care is unchanged.
[2020-07-04] MEDS: Acetaminophen 325 MG TAB PO SCH ×4 (00:14→17:28)
[2020-07-04] MEDS: traMADol HCl 50 MG TAB PO SCH ×6 (00:15→21:19)
[2020-07-04] MEDS: cloNIDine 0.1 MG TAB PO SCH ×4 (03:19→21:18)
[2020-07-04] MEDS: Ciprofloxacin 500 MG TAB PO SCH ×2 (05:21→21:19)
--- NOTE | 2020-07-04 07:40 | ULT ---
Venous duplex sonogram bilateral lower extremity HISTORY: Bilateral leg pain and edema. FINDINGS: Each common femoral vein and greater saphenous junction were evaluated along with each femo ral, deep femoral, popliteal, and posterior tibial vein. There is good color and spectral Doppler flow, compression, and augmentation. IMPRESSION : Normal exam.
[2020-07-04] MEDS: Senokot S 8.6-50 MG TAB PO SCH ×2 (08:29→21:21)
[2020-07-04] MEDS: Ascorbic Acid 500 mg Chewable Tablet PO SCH ×2 (08:29→21:20)
[2020-07-04] MEDS: Ferrous Sulfate 325 MG TAB PO SCH ×2 (08:30→21:20)
[2020-07-04] MEDS: Polyethylene Glycol 3350 17 GM Packet PO SCH (08:30)
[2020-07-04] MEDS: Bisacodyl 10 MG SUPP PR SCH (08:30)
[2020-07-04] MEDS: Docusate 100 MG CAP PO SCH ×2 (08:30→21:21)
[2020-07-04] MEDS: Gabapentin 100 MG CAP PO SCH ×3 (08:30→21:20)
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
[2020-07-04] MEDS: Enoxaparin Sodium 40 MG/0.4 ML SYRINGE SC SCH (21:20)
[2020-07-05] MEDS: Acetaminophen 325 MG TAB PO SCH ×5 (00:15→23:18)
[2020-07-05] MEDS: cloNIDine 0.1 MG TAB PO SCH ×4 (03:16→19:55)
[2020-07-05] MEDS: traMADol HCl 50 MG TAB PO SCH ×4 (03:17→21:09)
[2020-07-05] MEDS: Ciprofloxacin 500 MG TAB PO SCH ×2 (06:04→19:53)
[2020-07-05] MEDS: Polyethylene Glycol 3350 17 GM Packet PO SCH (10:13)
[2020-07-05] MEDS: Bisacodyl 10 MG SUPP PR SCH (10:13)
[2020-07-05] MEDS: Ascorbic Acid 500 mg Chewable Tablet PO SCH ×2 (10:13→19:53)
[2020-07-05] MEDS: Docusate 100 MG CAP PO SCH ×2 (10:13→19:53)
[2020-07-05] MEDS: Gabapentin 100 MG CAP PO SCH ×3 (10:13→19:54)
[2020-07-05] MEDS: Ferrous Sulfate 325 MG TAB PO SCH ×2 (10:13→19:53)
[2020-07-05] MEDS: Senokot S 8.6-50 MG TAB PO SCH ×2 (10:14→19:55)
[2020-07-05] MEDS: traMADol HCl 50 MG TAB PO PRN (10:40)
[2020-07-05] MEDS ORDERED: Fentanyl 100 MCG/2 ML VIAL ONE (12:45)
[2020-07-05] MEDS ORDERED: Midazolam HCl 2 mg/2 ml Vial ONE (12:45)
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
[2020-07-05] MEDS ORDERED: Iopamidol 370 76% 50 ML VIAL FS ONE (17:43)
[2020-07-05] MEDS: Enoxaparin Sodium 40 MG/0.4 ML SYRINGE SC SCH (19:53)
[2020-07-06] MEDS: cloNIDine 0.1 MG TAB PO SCH (02:33)
[2020-07-06] MEDS: traMADol HCl 50 MG TAB PO SCH ×4 (02:33→20:18)
[2020-07-06] MEDS: Acetaminophen 325 MG TAB PO SCH ×3 (05:27→17:07)
[2020-07-06] MEDS: Ciprofloxacin 500 MG TAB PO SCH ×2 (05:27→20:17)
--- NOTE | 2020-07-06 06:32 | OP ---
DATE OF PROCEDURE: 07/05/2020 PREOPERATIVE DIAGNOSIS: OptEase IVC filter placed. PROCEDURE PERFORMED: OptEase IVC filter removal. ANESTHESIA: 1% lidocaine with IV sedation. DESCRIPTION OF PROCEDURE: After prepping and draping the right groin, ultrasound-guided infiltration of lidocaine was carried out and then a needle inserted in the vein 1st pass. Wire was passed and monitored to avoid entering the IVC filter region. Following this, an 11-Mauritanian dilator and sheath were placed and venogram obtained, showing no thrombus. Following this, a 10-Mauritanian sheath was advanced through the 11-Mauritanian sheath over the wire and the sheath was left just below the IVC filter and a 10-mm snare was then advanced, capturing the hook on the vena cava filter and then slowly advancing the sheath over the filter as the filter was withdrawn. The 10-Mauritanian sheath and filter were then removed from the body and then the 11-Mauritanian sheath removed and pressure held. FLUORO: 1.7 minutes. CONTRAST: 4 mL. Job ID: [id number]
[2020-07-06] MEDS: Gabapentin 100 MG CAP PO SCH ×3 (09:10→20:17)
[2020-07-06] MEDS: Senokot S 8.6-50 MG TAB PO SCH ×2 (09:10→20:18)
[2020-07-06] MEDS: Ferrous Sulfate 325 MG TAB PO SCH ×2 (09:10→20:17)
[2020-07-06] MEDS: Ascorbic Acid 500 mg Chewable Tablet PO SCH ×2 (09:11→20:17)
[2020-07-06] MEDS: Bisacodyl 10 MG SUPP PR SCH (09:11)
[2020-07-06] MEDS: Polyethylene Glycol 3350 17 GM Packet PO SCH (09:12)
[2020-07-06] MEDS: Docusate 100 MG CAP PO SCH ×2 (09:12→20:18)
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
[2020-07-06] MEDS: Enoxaparin Sodium 40 MG/0.4 ML SYRINGE SC SCH (20:17)
[2020-07-07] MEDS: Acetaminophen 325 MG TAB PO SCH ×4 (00:09→17:42)
[2020-07-07] MEDS: traMADol HCl 50 MG TAB PO SCH ×4 (03:42→20:34)
[2020-07-07] MEDS: Ciprofloxacin 500 MG TAB PO SCH ×2 (05:41→20:33)
[2020-07-07] MEDS: Polyethylene Glycol 3350 17 GM Packet PO SCH (08:36)
[2020-07-07] MEDS: Docusate 100 MG CAP PO SCH ×2 (08:36→22:20)
[2020-07-07] MEDS: Senokot S 8.6-50 MG TAB PO SCH ×2 (08:36→22:20)
[2020-07-07] MEDS: Gabapentin 100 MG CAP PO SCH ×3 (08:36→20:34)
[2020-07-07] MEDS: Ferrous Sulfate 325 MG TAB PO SCH ×2 (08:36→20:34)
[2020-07-07] MEDS: Ascorbic Acid 500 mg Chewable Tablet PO SCH ×2 (08:37→20:34)
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
[2020-07-07] MEDS: Enoxaparin Sodium 40 MG/0.4 ML SYRINGE SC SCH (20:35)
[2020-07-08] MEDS ORDERED: Acetaminophen 325 MG TAB ONE ×2 (05:10→12:24)
[2020-07-08] MEDS ORDERED: Ciprofloxacin 500 MG TAB ONE (05:10)
[2020-07-08] MEDS ORDERED: Ferrous Sulfate 325 MG TAB ONE (10:09)
[2020-07-08] MEDS ORDERED: Docusate 100 MG CAP ONE (10:09)
[2020-07-08] MEDS ORDERED: Polyethylene Glycol 3350 17 GM Packet ONE (10:10)
[2020-07-08] MEDS ORDERED: Gabapentin 100 MG CAP ONE ×2 (10:11→15:31)
[2020-07-08] MEDS ORDERED: traMADol HCl 50 MG TAB ONE (10:12)
[2020-07-08] MEDS ORDERED: Ascorbic Acid 500 mg Chewable Tablet ONE (10:13)
[2020-07-08] MEDS: traMADol HCl 50 MG TAB PO SCH ×5 (10:20→21:44)
[2020-07-08] MEDS: Gabapentin 100 MG CAP PO SCH ×3 (10:20→21:45)
[2020-07-08] MEDS: Acetaminophen 325 MG TAB PO SCH ×3 (12:28→19:43)
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
[2020-07-08] MEDS: Ascorbic Acid 500 mg Chewable Tablet PO SCH ×2 (16:18→21:46)
[2020-07-08] MEDS: Docusate 100 MG CAP PO SCH ×2 (16:19→21:45)
[2020-07-08] MEDS: Ferrous Sulfate 325 MG TAB PO SCH ×2 (16:19→21:45)
[2020-07-08] MEDS: Senokot S 8.6-50 MG TAB PO SCH ×2 (16:19→21:44)
[2020-07-08] MEDS: Polyethylene Glycol 3350 17 GM Packet PO SCH (16:19)
[2020-07-08] MEDS: Gabapentin 100 MG CAP ONE ×2 (16:21→16:29)
[2020-07-08] MEDS: Ciprofloxacin 500 MG TAB PO SCH ×2 (19:44→21:45)
[2020-07-08] MEDS: Enoxaparin Sodium 40 MG/0.4 ML SYRINGE SC SCH (21:46)
[2020-07-09] MEDS: Acetaminophen 325 MG TAB PO SCH ×5 (00:03→23:52)
[2020-07-09] MEDS: traMADol HCl 50 MG TAB PO SCH ×4 (03:15→19:53)
[2020-07-09] MEDS: Ciprofloxacin 500 MG TAB PO SCH ×2 (06:24→19:52)
[2020-07-09] MEDS: Ascorbic Acid 500 mg Chewable Tablet PO SCH ×2 (08:38→19:55)
[2020-07-09] MEDS: Ferrous Sulfate 325 MG TAB PO SCH ×2 (08:38→19:53)
[2020-07-09] MEDS: Gabapentin 100 MG CAP PO SCH ×3 (08:38→19:53)
[2020-07-09] MEDS: Docusate 100 MG CAP PO SCH ×2 (08:38→19:53)
[2020-07-09] MEDS: Polyethylene Glycol 3350 17 GM Packet PO SCH (08:44)
[2020-07-09] MEDS: Senokot S 8.6-50 MG TAB PO SCH ×2 (08:44→19:55)
[2020-07-09] MEDS: Enoxaparin Sodium 40 MG/0.4 ML SYRINGE SC SCH (19:53)
[2020-07-10] MEDS: traMADol HCl 50 MG TAB PO SCH ×4 (03:45→20:15)
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
[2020-07-10] MEDS: Acetaminophen 325 MG TAB PO SCH ×4 (06:16→23:10)
[2020-07-10] MEDS: Gabapentin 100 MG CAP PO SCH ×3 (08:44→20:13)
[2020-07-10] MEDS: Senokot S 8.6-50 MG TAB PO SCH ×2 (08:45→19:47)
[2020-07-10] MEDS: Ferrous Sulfate 325 MG TAB PO SCH ×2 (08:45→20:14)
[2020-07-10] MEDS: Docusate 100 MG CAP PO SCH ×2 (08:45→20:14)
[2020-07-10] MEDS: Ascorbic Acid 500 mg Chewable Tablet PO SCH ×2 (08:45→20:13)
[2020-07-10] MEDS: Polyethylene Glycol 3350 17 GM Packet PO SCH (08:47)
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
[2020-07-10] MEDS: Enoxaparin Sodium 40 MG/0.4 ML SYRINGE SC SCH (20:13)
[2020-07-11] MEDS: traMADol HCl 50 MG TAB PO SCH ×4 (03:28→20:31)
[2020-07-11] MEDS: Acetaminophen 325 MG TAB PO SCH ×4 (05:39→23:55)
[2020-07-11] MEDS: Gabapentin 100 MG CAP PO SCH ×3 (08:18→20:30)
[2020-07-11] MEDS: Ascorbic Acid 500 mg Chewable Tablet PO SCH ×2 (08:19→20:29)
[2020-07-11] MEDS: Polyethylene Glycol 3350 17 GM Packet PO SCH (08:19)
[2020-07-11] MEDS: Senokot S 8.6-50 MG TAB PO SCH ×2 (08:20→20:29)
[2020-07-11] MEDS: Ferrous Sulfate 325 MG TAB PO SCH ×2 (10:00→20:30)
[2020-07-11] MEDS: Docusate 100 MG CAP PO SCH ×2 (10:00→20:30)
[2020-07-11] MEDS: Enoxaparin Sodium 40 MG/0.4 ML SYRINGE SC SCH (20:31)
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
[2020-07-12] MEDS: traMADol HCl 50 MG TAB PO SCH ×3 (03:20→14:19)
[2020-07-12] MEDS: Acetaminophen 325 MG TAB PO SCH ×2 (05:42→12:05)
[2020-07-12] MEDS: Docusate 100 MG CAP PO SCH (08:40)
[2020-07-12] MEDS: Ascorbic Acid 500 mg Chewable Tablet PO SCH (08:40)
[2020-07-12] MEDS: Senokot S 8.6-50 MG TAB PO SCH (08:40)
[2020-07-12] MEDS: Ferrous Sulfate 325 MG TAB PO SCH (08:40)
[2020-07-12] MEDS: Polyethylene Glycol 3350 17 GM Packet PO SCH (08:40)
[2020-07-12] MEDS: Gabapentin 100 MG CAP PO SCH ×2 (08:41→14:18)
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
[2020-07-12 11:30] VITALS: BP 137/99; TEMP 98.1
== END 2020-07-12 14:54 | disposition home or self-care (01) | DRG 956 ==
LOC: ERS 19:50 → CCU 21:06 → PACU-TCU 06-25 15:57 → SURG B 06-26 17:42
PROVIDERS: ADMIT Surgery; ATTEND Surgery
PROC: 30233N1 Transfusion of Nonautologous Red Blood Cells into Peripheral Vein, Percutaneous Approach (ICD-10-PCS; 2020-06-22)
PROC: 0QH936Z Insertion of Intramedullary Internal Fixation Device into Left Femoral Shaft, Percutaneous Approach (ICD-10-PCS; principal; 2020-06-23)
PROC: 06H03DZ Insertion of Intraluminal Device into Inferior Vena Cava, Percutaneous Approach (ICD-10-PCS; 2020-06-26)
PROC: 06PY0DZ Removal of Intraluminal Device from Lower Vein, Open Approach (ICD-10-PCS; 2020-07-05)
DX: S72.392A Other fracture of shaft of left femur, initial encounter for closed fracture (principal); S36.116A Major laceration of liver, initial encounter; S52.512A Displaced fracture of left radial styloid process, initial encounter for closed fracture; S06.0X9A Concussion with loss of consciousness of unspecified duration, initial encounter; S27.321A Contusion of lung, unilateral, initial encounter; S27.0XXA Traumatic pneumothorax, initial encounter; S36.039A Unspecified laceration of spleen, initial encounter; D62 Acute posthemorrhagic anemia; N39.0 Urinary tract infection, site not specified; E83.39 Other disorders of phosphorus metabolism; Z20.822 Contact with and (suspected) exposure to COVID-19; E83.51 Hypocalcemia; V49.40XA Driver injured in collision with unspecified motor vehicles in traffic accident, initial encounter
CPT/HCPCS: 0240U; 25600; 36415; 36416; 36430; 37191; 37193; 51702; 70450; 71045; 71260; 72125; 72170; 74018; 74177; 76000; 76942; 80048; 80053; 80306; 80307; 81001; 83605; 83735; 84100; 84703; 85025; 85027; 85610; 85730; 86850; 86900; 86901; 87077; 87086; 87186; 87635; 90715; 93005; 93970; 94640; 96365; 96375; C1713; G0390; J0690; J1100; J1644; J1650; J2250; J2270; J2405; J2550; J2704; J3010; J3475; J3490; J7030; J7050; J7620; P9016; Q9967; S0028; U0003; U0005